=== PATIENT | male | born 1990 | race Caucasian/White ===

== ENCOUNTER 2020-01-12 22:20 | Emergency (ER) | payer OTHER ==
[2020-01-12 22:28] VITALS: TEMP 97.3; BMI 24.3
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
[2020-01-12] MEDS ORDERED: ACETAMINOPHEN 500 MG TABLET (FP) PO ONE (23:05)
[2020-01-12] MEDS ORDERED: ACETAMINOPHEN 325 MG TABLET (FP) ONE (23:09)
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
[2020-01-13 00:27] VITALS: BP 113/81; PULSE 83
== END 2020-01-13 00:27 | disposition home or self-care (01) ==
LOC: JER 22:20
DX: S09.8XXA Other specified injuries of head, initial encounter (principal); S50.812A Abrasion of left forearm, initial encounter; V43.62XA Car passenger injured in collision with other type car in traffic accident, initial encounter; Y92.414 Local residential or business street as the place of occurrence of the external cause; W22.12XA Striking against or struck by front passenger side automobile airbag, initial encounter; Y93.89 Activity, other specified; Y99.0 Civilian activity done for income or pay
CPT/HCPCS: 70450-TC; 70486-TC; 72125-TC; 99284-25

== ENCOUNTER 2020-06-19 23:21 | Emergency (ER) | payer OTHER ==
[2020-06-19 23:29] VITALS: BMI 24.3
[2020-06-19 23:34] VITALS: BP 122/81; PULSE 109; TEMP 99.4
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
== END 2020-06-19 23:48 | disposition home or self-care (01) ==
LOC: FER 23:21
DX: S60.511A Abrasion of right hand, initial encounter (principal); S60.419A Abrasion of unspecified finger, initial encounter
CPT/HCPCS: 99283-25

== ENCOUNTER 2021-12-22 00:20 | Emergency (ER) | payer OTHER ==
[2021-12-22 00:27] VITALS: BP 159/107; PULSE 114; TEMP 98; BMI 25.1
== END 2021-12-22 00:31 | disposition home or self-care (01) ==
LOC: FER 00:20
DX: M25.561 Pain in right knee (principal); M25.562 Pain in left knee
CPT/HCPCS: 99283-25

== ENCOUNTER 2022-04-28 22:01 | Emergency (ER) | payer OTHER ==
[2022-04-28 22:06] VITALS: BMI 25.1
[2022-04-28 22:21] VITALS: BP 122/86; PULSE 77; TEMP 97.6
== END 2022-04-28 22:36 | disposition home or self-care (01) ==
LOC: FER 22:01
DX: S61.031A Puncture wound without foreign body of right thumb without damage to nail, initial encounter (principal); W46.1XXA Contact with contaminated hypodermic needle, initial encounter
CPT/HCPCS: 99282-25